=== PATIENT | male | born 1985 ===

== ENCOUNTER 2017-09-03 02:42 | Emergency (ER) | payer MEDICAID ==
[2017-09-03 02:43] VITALS: BMI 44.0
[2017-09-03 02:52] VITALS: TEMP 97.9
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
[2017-09-03 05:54] VITALS: BP 106/68; PULSE 62; RESP 17; O2SAT 97
== END 2017-09-03 05:54 | disposition home or self-care (01) ==
LOC: H.ER 02:42
DX: F43.20 Adjustment disorder, unspecified (principal); Z86.59 Personal history of other mental and behavioral disorders; J45.909 Unspecified asthma, uncomplicated; K50.90 Crohn's disease, unspecified, without complications; Z02.89 Encounter for other administrative examinations

== ENCOUNTER 2018-07-18 20:22 | Emergency (ER) | payer SELFPAY ==
[2018-07-18 20:22] VITALS: BMI 44.0
[2018-07-18 20:35] VITALS: RESP 16; O2SAT 99
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
[2018-07-18 22:30] VITALS: BP 108/71; PULSE 63; TEMP 98.2
== END 2018-07-18 22:30 ==
LOC: H.ER 20:22
DX: F43.20 Adjustment disorder, unspecified (principal); F19.10 Other psychoactive substance abuse, uncomplicated; F31.9 Bipolar disorder, unspecified; K50.90 Crohn's disease, unspecified, without complications; J45.909 Unspecified asthma, uncomplicated